=== PATIENT | female | born 1940 | race Caucasian/White ===

== ENCOUNTER → 2017-03-12 | Outpatient (CLI) | payer OTHER ==
[~2017-03-12] VITALS: Ht 152.4 cm; Wt 81.6 kg
[~2017-03-12] MED LIST: CALCIUM 500 +1 EAC5 PO; CINNAMON500 MG PO; FUROSEMIDE 40 M40 M1 PO; IRBESARTAN150 MG PO; K-DUR 20 MEQ T20 MEQ PO; KRILL OIL500 MG PO; L-LYSINE500 MG PO; LIPITOR10 MG PO; MULTIVITAMINS1 EAC7 PO; NEXIUM40 MG PO; RED YEAST RICE30 GM PO; VITAMIN B-6100 MG PO; VITAMIN B-COMP1 EAC3 PO; VITAMIN D-32000 UNIT PO; ZOCOR40 MG PO
--- NOTE | ~2017-03-12 | S ---
[facility] [place] [address] SURGICAL PATH RPT PROCEDURE Name: AURELIA NAVARRETE Room #: REG [facility].#: [id number] Admission: 03/12/17 Date of : 42 Discharge: Report #: [id number] Path Case #: [id number] PATHOLOGY REPORT COLLECTION DATE: 03/12/2017 RECEIVED DATE: 03/12/2017 SUBMITTING PHYS: Dr. Silvestre Smith OTHER PHYS: Dr. Bryan Tapia SPECIMEN(S) RECEIVED: A.Polyp at cecum B.Polyp at 70 cm x2 C.Polyp at 60 cm * * * * * * * * * * * * FINAL DIAGNOSIS: A. Polyp, at cecum, endoscopic biopsy: - Inflamed tubular adenoma. - Negative for high-grade dysplasia. B. Polyp, at 70 cm, endoscopic biopsy: - Tubular adenoma. - Negative for high-grade dysplasia. C. Polyp, at 60 cm, endoscopic biopsy: - Hyperplastic polyp. - Negative for dysplasia. (IUV:mgr; d/t: 03/15/17) PATHOLOGIST: Lyndsey Thomas M.D. REPORT ELECTRONICALLY SIGNED BY: Lyndsey Thomas M.D. DATE/TIME: 03/15/2017 21:20 * * * * * * * * * * * * GROSS PATHOLOGY: A. Received in formalin labeled "Aurelia Navarrete, polyp at cecum," are 2 segments of yao soft tissue measuring 0.9 x 0.2 x 0.2 cm in aggregate dimensions and ranging from 0.2 to 0.8 cm in maximum dimension. The specimen is submitted entirely in cassette A1. B. Received in formalin labeled "Aurelia Navarrete, polyp at 70," and additionally labeled on the requisition as "polyp at 70 cm 2," are 2 segments of yao soft tissue measuring 0.6 x 0.4 x 0.2 cm in aggregate dimensions and ranging from 0.4 to 0.5 cm in maximum dimension. The specimen is submitted entirely in cassette B1. C. Received in formalin labeled "Aurelia Navarrete, polyp at 60," is a segment of yao soft tissue measuring 0.4 cm in maximum dimension. The specimen is submitted entirely in cassette C1. (KAH; 03/13/2017) [address] [place] [address] SURGICAL PATH RPT PROCEDURE Name: AURELIA NAVARRETE Room #: REG [facility].#: [id number] Admission: 03/12/17 Date of : 42 Discharge: Report #: [id number] Path Case #: [id number] CLINICAL HISTORY: Pre-op diagnosis: History polyps Post-op diagnosis: Polyps, diverticulosis INITIAL CPT CODE(S): A; 21099 B; 31403 C; 45402 Professional services performed by [facility] at [facility] [address] [place] [address] Technical services performed by [facility] at [address] [place] [address], [address], [place] [address]. [facility] [address] [place] [address] PHONE: [phone] DIRECTOR: Ritchie Alvarado M.D. * * * END OF REPORT * * *
--- NOTE | ~2017-03-12 | P ---
[facility] [place] [address] PROCEDURE REPORT Name: AURELIA PEDERSON Room #: REG [facility]#: [id number] Admission: 03/12/17 Attend Phys: Silvestre Smith MD Discharge: Date of : 42 Report #: [id number] THIS REPORT FOR: //name// CC: Silvestre Taipa MD BRIEF HISTORY: The patient is a 76-year-old woman with history of colon polyps. She has a lifetime count of 12 adenomatous in the past. She presents for average risk screening colonoscopy. PREOPERATIVE DIAGNOSIS: Average risk screening colonoscopy due to history of colon polyps. POSTOPERATIVE DIAGNOSES: 1. Multiple colon polyps. 2. Moderate diverticulosis coli, primarily sigmoid colon. MEDICATIONS: Deep sedation with propofol per anesthesia. SPECIMENS: 1. Diminutive polyp from cecum. 2. Diminutive polyps from 70 cm times 2. 3. Diminutive polyp from 60 cm. ESTIMATED BLOOD LOSS: 3 mL. PROCEDURE: Colonoscopy to cecum and terminal ileum with biopsy. FINDINGS: Prior to propofol sedation, procedure of colonoscopy discussed with the patient as well as potential risks, benefits, and complications. She indicates she understands and desires to proceed. With the patient in left lateral decubitus position, digital examination was completed, which revealed no abnormalities. Subsequently, the RepRegen video colonoscope was introduced into the rectum, advanced under direct vision to the cecum. Done with minimal difficulty. The cecum was identified by the ileocecal valve and the appendiceal orifice. I was able to visualize the distal segment of terminal ileum, which was inspected and noted to be unremarkable. At that point, the scope was slowly withdrawn and careful circumferential views obtained. As we withdrew the scope, she was found to have a diminutive polyp in the cecum, which was removed by biopsy. Scope was further withdrawn and no additional abnormalities were noted until the left colon was reached and in the proximal descending colon, a 70 cm, another diminutive polyp seen and removed by biopsy. There were actually 2 diminutive polyps removed by biopsy at 70 cm. At 60 cm, another diminutive polyp was seen and removed by biopsy. The patient was also noted to have moderately severe sigmoid diverticular disease without [facility] [address] [place] [address] PROCEDURE REPORT Name: AURELIA PEDERSON Room #: REG [facility].#: [id number] Admission: 03/12/17 Attend Phys: Silvestre Smith MD Discharge: Date of : 42 Report #: [id number] endoscopic evidence of diverticulitis. Scope was withdrawn in the rectum. Upon retroflexion, no abnormalities were seen. Scope was withdrawn. The patient tolerated the procedure well. CONDITION OF THE PATIENT UPON DISCHARGE: Following procedure, the patient drowsy, aroused, conversant and will be discharged home when fully ambulatory. INSTRUCTIONS TO THE PATIENT AND FAMILY AT THE TIME OF DISCHARGE: The patient with finding of 4 polyps as described. We will follow up on the path report. Due to her rising polyp count and continued to find multiple adenomas, we will have her return in 3 years for followup colonoscopy. The last colonoscopy was 3 years ago. Withdrawal time from the cecum was 15 minutes. <ELECTRONICALLY SIGNED> By: Silvestre Smith MD 03/12/17 [phone] [id number] Silvestre Smith MD /nt
--- NOTE | ~2017-03-12 | EKG ---
[place] [address] [facility] [place] [address] ELECTROCARDIOGRAM REPORT Name: AURELIA PEDERSON [id number] Admission: 03/12/17 Attend Phys: Silvestre Smith MD Discharge: Date of : 42 Report #: [id number] THIS REPORT FOR: //name// [facility] Test Date: 2017-03-12 Test Time: 07:56:36 Pat Name: AURELIA PEDERSON Department: Room: Gender: F Assistant Surveyor: RAMSEY : 1940 Requested By: Silvestre Smith Order Number: [id number] MD: Jon Hutchins Measurements Intervals [place] Rate: 79 P: 46 [place]: 160 QRS: 37 QRSD: 92 T: 32 QT: 401 QTc: 460 Interpretive Statements Sinus rhythm Low voltage, precordial leads Compared to ECG 09/28/2009 07:13:17 No significant changes Electronically Signed On 03-12-2017 8:12:22 CDT by Jon Hutchins [email or web address] <ELECTRONICALLY SIGNED> By: Jon Hutchins MD, [facility] 03/12/17 0812 D: 06/755 075 Jon Hutchins MD, FACC /EPI
== END | disposition home or self-care (01) ==
LOC: GI 07:20
DX: Z09 Encounter for follow-up examination after completed treatment for conditions other than malignant neoplasm (principal); Z86.010 Personal history of colon polyps; D12.0 Benign neoplasm of cecum; D12.4 Benign neoplasm of descending colon; K57.30 Diverticulosis of large intestine without perforation or abscess without bleeding; Z87.891 Personal history of nicotine dependence; I50.9 Heart failure, unspecified; E78.00 Pure hypercholesterolemia, unspecified; K21.9 Gastro-esophageal reflux disease without esophagitis; F32.9 Major depressive disorder, single episode, unspecified; Z90.710 Acquired absence of both cervix and uterus; Z98.890 Other specified postprocedural states
CPT/HCPCS: 62110; 62900